=== PATIENT | female | born 1960 | race Caucasian/White ===

== ENCOUNTER 2020-12-14 16:32 | Inpatient (IN) ==
[2020-12-15] MEDS: levoFLOXacin 750 MG TABLET PO SCH (17:00)
[2020-12-15] MEDS: Ipratropium Neb 0.5 MG NEBULIZER IH SCH (17:12)
[2020-12-15] MEDS: Budesonide/Formoterol 160/4.5 1 PUFF INH IH SCH (19:51)
[2020-12-15] MEDS: Acetaminophen 325 MG TABLET PO PRN (21:03)
[2020-12-16] MEDS ORDERED: ALPRAZolam 1 MG TABLET PO ONE (00:03)
[2020-12-16] MEDS: Ipratropium Neb 0.5 MG NEBULIZER IH SCH ×4 (00:21→23:44)
[2020-12-16] MEDS: *HR* Enoxaparin 40 MG/0.4 ML SYRINGE SQ SCH (05:14)
[2020-12-16 07:02] LABS: Basophils % 0.2 %; Eosinophils # 0.2 K/mcL (0.0-0.6); Eosinophils % 1.4 %; Hematocrit 38.8 % (35.3-44.9); Hemoglobin 11.9 g/dL (11.5-15.4); Lymphocytes # 2.5 K/mcL (0.6-4.6); Lymphocytes % 17.9 %; Mean Corpuscular HGB Conc 30.7 g/dL (31.6-35.5); Mean Corpuscular Hemoglobin 27.2 pg (28.0-33.3); Mean Corpuscular Volume 88.6 fL (83.0-100.0); Mean Platelet Volume 9.4 fL (9.4-12.4); Monocytes # 1.1 K/mcL (0.0-1.3); Platelet Count 338 K/mcL (140-400); Red Blood Count 4.38 M/mcL (3.82-4.97); Red Cell Distribution Width 14.7 % (11.5-14.5); Segmented Neutrophils % 71.5 %
[2020-12-16 07:31] LABS: BUN/Creatinine Ratio 36 (6-26); Blood Urea Nitrogen 15 mg/dL (6-20); Calcium 9.2 mg/dL (8.6-10.3); Carbon Dioxide 37 mEq/L (23-29); Chloride 96 mEq/L (98-107); Glucose 75 mg/dL (70-105); Osmolality,Calculated 284 (280-300); Potassium 3.6 mEq/L (3.5-5.1); Sodium 137 mEq/L (136-145); eGFR For African Americans > 60 (> 60); eGFR For Non-African Americans > 60 (> 60)
[2020-12-16] MEDS: Budesonide/Formoterol 160/4.5 1 PUFF INH IH SCH ×2 (07:59→23:44)
[2020-12-16] MEDS: predniSONE 20 MG TABLET PO SCH (10:12)
[2020-12-16] MEDS: Acetaminophen 325 MG TABLET PO PRN (10:12)
[2020-12-16] MEDS: Furosemide 20 MG TABLET PO SCH (10:14)
[2020-12-16] MEDS: levoFLOXacin 750 MG TABLET PO SCH (16:07)
[2020-12-16] MEDS ORDERED: Saliva Stimulant 44.3ml BOTTLE PO PRN (18:08)
[2020-12-17] MEDS: *HR* Enoxaparin 40 MG/0.4 ML SYRINGE SQ SCH (05:39)
[2020-12-17] MEDS: Acetaminophen 325 MG TABLET PO PRN (07:03)
[2020-12-17] MEDS: predniSONE 20 MG TABLET PO SCH (07:53)
[2020-12-17] MEDS: Furosemide 20 MG TABLET PO SCH (07:54)
[2020-12-17] MEDS: Ipratropium Neb 0.5 MG NEBULIZER IH SCH (07:56)
[2020-12-17] MEDS: Budesonide/Formoterol 160/4.5 1 PUFF INH IH SCH ×2 (07:56→21:33)
[2020-12-17] MEDS: Nicotine 21 MG PATCH.TD24 TD SCH (14:43)
[2020-12-17] MEDS: levoFLOXacin 750 MG TABLET PO SCH (14:43)
[2020-12-17] MEDS ORDERED: Saline Nasal Spray 44 ML BOTTLE NS PRN (15:29)
[2020-12-17] MEDS: *HR* LORazepam 0.5 MG TABLET PO PRN ×2 (15:50→20:10)
[2020-12-17] MEDS: Ipratropium/Albuterol Neb 3 ML IH SCH ×2 (16:12→21:33)
[2020-12-18] MEDS: Ipratropium/Albuterol Neb 3 ML IH SCH ×4 (03:46→20:49)
[2020-12-18] MEDS: *HR* Enoxaparin 40 MG/0.4 ML SYRINGE SQ SCH (06:15)
[2020-12-18] MEDS: predniSONE 20 MG TABLET PO SCH (07:29)
[2020-12-18] MEDS: Sennosides/Docusate Sodium TABLET PO SCH (07:29)
[2020-12-18] MEDS: Furosemide 20 MG TABLET PO SCH (07:29)
[2020-12-18] MEDS: Acetaminophen 325 MG TABLET PO PRN ×2 (07:29→15:26)
[2020-12-18] MEDS: Nicotine 21 MG PATCH.TD24 TD SCH (07:30)
[2020-12-18] MEDS: *HR* LORazepam 0.5 MG TABLET PO PRN ×3 (07:30→21:05)
[2020-12-18] MEDS: Budesonide/Formoterol 160/4.5 1 PUFF INH IH SCH ×2 (10:20→20:50)
[2020-12-18] MEDS: levoFLOXacin 750 MG TABLET PO SCH (15:26)
[2020-12-19] MEDS: *HR* LORazepam 0.5 MG TABLET PO PRN ×3 (02:25→19:32)
[2020-12-19] MEDS: Ipratropium/Albuterol Neb 3 ML IH SCH ×4 (04:21→21:40)
[2020-12-19] MEDS: *HR* Enoxaparin 40 MG/0.4 ML SYRINGE SQ SCH (05:04)
[2020-12-19 05:16] LABS: Hematocrit 35.4 % (35.3-44.9); Hemoglobin 10.9 g/dL (11.5-15.4); Mean Corpuscular HGB Conc 30.8 g/dL (31.6-35.5); Mean Corpuscular Hemoglobin 27.3 pg (28.0-33.3); Mean Corpuscular Volume 88.7 fL (83.0-100.0); Mean Platelet Volume 9.4 fL (9.4-12.4); Platelet Count 260 K/mcL (140-400); Red Blood Count 3.99 M/mcL (3.82-4.97); Red Cell Distribution Width 15.4 % (11.5-14.5); White Blood Count 12.4 K/mcL (4.3-11.1)
[2020-12-19 05:24] LABS: INR 1.1
[2020-12-19 05:37] LABS: Alanine Aminotransferase 18 Units/L (7-52); Albumin 3.3 g/dL (3.5-5.7); Albumin/Globulin Ratio 1.3 (1.1-2.2); Alkaline Phosphatase 49 Units/L (34-104); Aspartate Amino Transferase 7 Units/L (13-39); BUN/Creatinine Ratio 47 (6-26); Bilirubin,Total 0.3 mg/dL (0.3-1.0); Blood Urea Nitrogen 18 mg/dL (6-20); Calcium 8.9 mg/dL (8.6-10.3); Carbon Dioxide 33 mEq/L (23-29); Chloride 100 mEq/L (98-107); Globulin 2.6 g/dL (2.4-3.5); Glucose 104 mg/dL (70-105); Magnesium 1.9 mg/dL (1.6-2.6); Osmolality,Calculated 288 (280-300); Potassium 3.6 mEq/L (3.5-5.1); Sodium 138 mEq/L (136-145); Total Protein 5.9 g/dL (6.4-8.9); eGFR For African Americans > 60 (> 60); eGFR For Non-African Americans > 60 (> 60)
[2020-12-19] MEDS: predniSONE 20 MG TABLET PO SCH (08:50)
[2020-12-19] MEDS: Sennosides/Docusate Sodium TABLET PO SCH (08:50)
[2020-12-19] MEDS: Furosemide 20 MG TABLET PO SCH (08:51)
[2020-12-19] MEDS: Nicotine 21 MG PATCH.TD24 TD SCH (08:51)
[2020-12-19] MEDS: Acetaminophen 325 MG TABLET PO PRN (08:51)
[2020-12-19] MEDS: Budesonide/Formoterol 160/4.5 1 PUFF INH IH SCH ×2 (10:49→21:41)
[2020-12-19] MEDS: levoFLOXacin 750 MG TABLET PO SCH (14:11)
[2020-12-20] MEDS: Acetaminophen 325 MG TABLET PO PRN ×3 (00:53→20:12)
[2020-12-20] MEDS: Ipratropium/Albuterol Neb 3 ML IH SCH ×4 (04:05→20:55)
[2020-12-20] MEDS: *HR* LORazepam 0.5 MG TABLET PO PRN ×3 (04:15→17:51)
[2020-12-20] MEDS: *HR* Enoxaparin 40 MG/0.4 ML SYRINGE SQ SCH (04:15)
[2020-12-20] MEDS: Nicotine 21 MG PATCH.TD24 TD SCH (07:54)
[2020-12-20] MEDS: Sennosides/Docusate Sodium TABLET PO SCH (07:55)
[2020-12-20] MEDS: Furosemide 20 MG TABLET PO SCH (07:55)
[2020-12-20] MEDS: Budesonide/Formoterol 160/4.5 1 PUFF INH IH SCH ×2 (08:56→20:55)
[2020-12-20] MEDS: levoFLOXacin 750 MG TABLET PO SCH (14:10)
[2020-12-21] MEDS: *HR* LORazepam 0.5 MG TABLET PO PRN ×2 (01:22→08:12)
[2020-12-21] MEDS: Ipratropium/Albuterol Neb 3 ML IH SCH ×2 (03:36→10:15)
[2020-12-21] MEDS: *HR* Enoxaparin 40 MG/0.4 ML SYRINGE SQ SCH (03:53)
[2020-12-21] MEDS: Acetaminophen 325 MG TABLET PO PRN (03:57)
[2020-12-21] MEDS: Budesonide/Formoterol 160/4.5 1 PUFF INH IH SCH (08:04)
[2020-12-21] MEDS: Nicotine 21 MG PATCH.TD24 TD SCH (08:11)
[2020-12-21] MEDS: Sennosides/Docusate Sodium TABLET PO SCH (08:12)
[2020-12-21 10:00] VITALS: BP 117/74; PULSE 87; TEMP 98.3
[2020-12-21] MEDS: levoFLOXacin 750 MG TABLET PO SCH (12:28)
[2020-12-21 13:10] VITALS: RESP 20; O2SAT 96
== END 2020-12-21 13:30 | disposition home or self-care (01) | DRG 945 ==
LOC: INPGRE 12-15 14:56
PROVIDERS: ADMIT Family Medicine; ATTEND Family Medicine